=== PATIENT | male | born 1975 | race Caucasian/White ===

== ENCOUNTER → 2018-09-23 | Outpatient (CLI) | payer OTHER ==
--- NOTE | 2018-09-27 16:17 | Polysomnography ---
DATE OF STUDY: 09/23/2018 REFERRING PHYSICIAN: Dr. Manas Cedillo INTERPRETATION OF DIAGNOSTIC POLYSOMNOGRAPHY. IMPRESSION: 1. Moderate obstructive sleep apnea with associated oxygen desaturations with a respiratory distress index (RDI) of 27.2. 2. Moderate snoring was noted. 3. Limb movements were observed. RECOMMENDATIONS: 1. Initiate titration for continuous positive airway pressure therapy (CPAP). 2. ENT evaluation to consider surgical options to correct sleep disordered breathing. 3. Avoid consumption of alcohol or sedative before bedtime. 4. Avoid caffeine and exercise within 3 to 4 hours prior to bedtime. 5. Weight reduction to ideal body weight. 6. Advise the patient that excessive daytime sleepiness could pose a danger to the patient and others while driving or operating heavy machinery, and to use caution until symptoms are treated and improved. 7. The patient to follow up with physician to discuss results of study. Manas Cedillo MD JKY/MODL /[id number] MTDD
== END ==
LOC: SLEEP 20:23
PROVIDERS: ATTEND Otolaryngology
DX: G47.33 Obstructive sleep apnea (adult) (pediatric) (principal)
CPT/HCPCS: 95810

== ENCOUNTER → 2018-10-18 | Outpatient (CLI) | payer OTHER | LOC: SLEEP 20:37 | PROVIDERS: ATTEND Otolaryngology | DX: G47.33 Obstructive sleep apnea (adult) (pediatric) (principal) | CPT/HCPCS: 95811 ==